=== PATIENT | male | born 1985 | race Caucasian/White ===

== ENCOUNTER → 2020-10-30 08:18 | Outpatient (RCR) | payer OTHER, SELFPAY ==
--- NOTE | 2020-10-30 09:14 | PC.NURSE ---
I spoke with the client this morning about his needs and his request for a anger management program. We discussed my calling his DCF [employer] [facility] Katina Sykes to speak with her about making a referral to an anger management program in the [place] area. Golden agrees to this plan and gives verbal consent to contact Ms Sykes. His fiancee , Brianna Palmer , was also involved in the conversation and agrees to the plan.
--- NOTE | 2020-10-30 13:15 | PC.NURSE ---
The clients DCF residential case manager called and we discussed the clients desire and need for anger management, a therapist, a prescriber and a primary care physician. I explained how the [facility] program may not meet the clients needs. I suggested she look in his area for an anger management program and if none are available she could try [facility] or [facility], both in [place]. I also suggested she contact his mass health insurance to see if they can assist her if needed. She said that she will follow up with making the appointments for him.
== END | disposition home or self-care (01) ==
LOC: HO.PHPA 10-29 14:03
PROVIDERS: Visit Provider Psychiatry & Neurology Psychiatry
DX: F33.2 Major depressive disorder, recurrent severe without psychotic features (principal); F43.10 Post-traumatic stress disorder, unspecified; F12.20 Cannabis dependence, uncomplicated